=== PATIENT | female | born 1995 | race Hispanic/Latino ===

== ENCOUNTER 2018-10-02 22:31 | Emergency (ER) | payer BC ==
[2018-10-02 22:50] VITALS: TEMP 98
[2018-10-03 00:54] LABS: BASO # 0.01 K/mm3 (0.0-2.0); BASO % 0.1 % (0.0-3.0); EOS # 0.1 (0.0-0.7); EOS % 0.4 % (1.5-5.0); HEMOGLOBIN 11.7 g/dL (12.0-16.0); LYMPH # 2.3 (1.2-3.4); MEAN CELL VOLUME 72.6 fl (80.0-105.0); MEAN CORPUSCULAR HEMOGLOBIN 22.1 pg (25.0-35.0); MEAN CORPUSCULAR HGB CONC 30.5 g/dl (31.0-37.0); MEAN PLATELET VOLUME 10.3 fl (7.0-11.0); MONO # 0.8 (0.1-0.6); RBC 5.29 10^6/uL (3.5-6.1); RED CELL DISTRIBUTION WIDTH 14.9 % (11.5-14.5); WHITE BLOOD COUNT 12.1 10^3/uL (4.5-11.0)
[2018-10-03 01:12] LABS: ALB/GLOB RATIO 1.3 (1.1-1.8); ALBUMIN 4.7 g/dL (3.0-4.8); ALT/SGPT 19 U/L (7-56); AST/SGOT 28 U/L (14-36); BLOOD UREA NITROGEN 12 mg/dL (7-21); CALCIUM 9.8 mg/dL (8.4-10.5); GFR NON-AFRICAN AMERICAN > 60
[2018-10-03] MEDS ORDERED: TDAP Vaccine 0.5 mL Syr IM ONE (01:13)
--- NOTE | 2018-10-03 01:13 | ED PDOC ---
Arrival/HPI <Mo Perez - Last Filed: 10/03/18 02:08> - General Historian: Patient - History of Present Illness Narrative History of Present Illness (Text): 10/03/18 01:13 23-year-old F with past medical history of hypertension, reports sustaining head trauma with a laceration in between her eyebrows after she was sitting on the toilet attempting to have a bowel movement, she then felt lightheaded and then had a syncopal episode and hit her face. Patient reports that she was smoking marijuana earlier. Otherwise: (-) loss of consciousness, (-) nausea, (- ) vomiting, (-) severe headache, (-) other injury, (-) neck pain, (-) subjective neurologic deficit, (-) anticoagulants. PMD Kathryn <Radha Cho PA-C - Last Filed: 10/03/18 02:17> - General Chief Complaint: Trauma Time Seen by Provider: 10/02/18 22:40 Past Medical History - Infectious Disease Hx of Infectious Diseases: None - Reproductive Currently : No - Cardiac Hx Cardiac Disorders: Yes Hx Hypertension: Yes - Pulmonary Hx Respiratory Disorders: No - Neurological Hx Neurological Disorder: No - HEENT Hx HEENT Disorder: No - Renal Hx Renal Disorder: No - Endocrine/Metabolic Hx Endocrine Disorders: No - Hematological/Oncological Hx Blood Disorders: No - Integumentary Hx Dermatological Disorder: No - Musculoskeletal/Rheumatological Hx Musculoskeletal Disorders: No - Gastrointestinal Hx Gastrointestinal Disorders: Yes Hx Gastroesophageal Reflux: Yes - Genitourinary/Gynecological Hx Genitourinary Disorders: No - Psychiatric Hx Psychophysiologic Disorder: Yes Hx Depression: Yes Hx Substance Use: Yes <Radha Cho PA-C - Last Filed: 10/03/18 02:17> Family/Social History Family/Social History: Hypertension Smoking Status: Current Some Days Smoker Hx Alcohol Use: No Hx Substance Use: Yes Substance used: marijuana <Radha Cho PA-C - Last Filed: 10/03/18 02:17> Allergies/Home Meds <Mo Perez - Last Filed: 10/03/18 02:08> <Radha Cho PA-C - Last Filed: 10/03/18 02:17> Allergies/Adverse Reactions: Allergies adhesive Allergy (Verified 10/02/18 22:48) RASH Home Medications: Home Meds Medication Instructions Recorded Confirmed FLUoxetine [Prozac] 10/02/18 10/02/18 Losartan [Cozaar] 10/02/18 Pantoprazole [Protonix EC Tab] 10/02/18 Review of Systems - Review of Systems Constitutional: absent: Fatigue, Fevers Respiratory: absent: SOB, Cough Cardiovascular: absent: Chest Pain, Palpitations Gastrointestinal: absent: Abdominal Pain, Nausea, Vomiting Genitourinary Female: absent: Dysuria, Frequency Musculoskeletal: absent: Arthralgias, Back Pain Skin: Laceration. absent: Rash, Pruritis Neurological: Dizziness. absent: Headache <Radha Cho PA-C - Last Filed: 10/03/18 02:17> Physical Exam Vital Signs Temp Pulse Resp BP Pulse Ox 10/02/18 22:49 98.0 F 94 H 20 147/94 H 100 <Mo Perez - Last Filed: 10/03/18 02:08> Vital Signs Temp Pulse Resp BP Pulse Ox 10/02/18 22:49 98.0 F 94 H 20 147/94 H 100 Temperature: Afebrile Blood Pressure: Hypertensive Pulse: Regular Respiratory Rate: Normal Appearance: Positive for: Well-Appearing, Non-Toxic, Comfortable Pain Distress: None Mental Status: Positive for: Alert and Oriented X 3 - Systems Exam Head: Present: Laceration (+superficial 3 cm vertical laceration in between the eyebrows) Pupils: Present: PERRL Extroacular Muscles: Present: EOMI Conjunctiva: Present: Normal Mouth: Present: Moist Mucous Membranes Neck: Present: Normal Range of Motion. No: MIDLINE TENDERNESS Respiratory/Chest: Present: Clear to Auscultation, Good Air Exchange. No: Respiratory Distress, Accessory Muscle Use Cardiovascular: Present: Regular Rate and Rhythm, Normal S1, S2. No: Murmurs Abdomen: No: Tenderness, Distention, Peritoneal Signs Back: Present: Normal Inspection Upper Extremity: Present: Normal Inspection. No: Cyanosis, Edema Lower Extremity: Present: Normal Inspection. No: Edema Neurological: Present: GCS=15, CN II-XII Intact, Speech Normal, Motor Func Grossly Intact, Normal Sensory Function Skin: Present: Warm, Dry, Normal Color. No: Rashes Psychiatric: Present: Alert, Oriented x 3, Normal Insight, Normal Concentration <Radha Cho PA-C - Last Filed: 10/03/18 02:17> Medical Decision Making - Lab Interpretations Lab Results: Total Bilirubin 0.4 mg/dL (0.2-1.3) 10/03/18 00:43 AST 28 U/L (14-36) 10/03/18 00:43 ALT 19 U/L (7-56) 10/03/18 00:43 Alkaline Phosphatase 70 U/L (38-126) 10/03/18 00:43 Total Protein 8.3 g/dL (5.8-8.3) 10/03/18 00:43 Albumin 4.7 g/dL (3.0-4.8) 10/03/18 00:43 Globulin 3.6 gm/dL 10/03/18 00:43 Albumin/Globulin Ratio 1.3 (1.1-1.8) 10/03/18 00:43 - RAD Interpretation Radiology Orders: 10/02/18 23:43 HEAD W/O CONTRAST [CT] Stat - Medication Orders Current Medication Orders: Discontinued Medications Tetanus/Reduced Diphtheria/Acell Pertussis (Boostrix Vaccine Inj) 0.5 ml IM .ONCE ONE Stop: 10/03/18 01:14 Last Admin: 10/03/18 01:34 Dose: 0.5 ml Immunization Registry Document 10/03/18 01:34 DM (Rec: 10/03/18 01:34 DM [id number]) [facility]-Date provided 10/02/18 MAR Immunization Data Document 10/03/18 01:34 DM (Rec: 10/03/18 01:34 [id number]) Immunization Data Vaccine Information Sheet Given Yes Vaccine Information Sheet Given Date 10/03/18 <Mo Perez - Last Filed: 10/03/18 02:08> ED Course and Treatment: 10/03/18 01:17 Plan : - CT head - Labs - EKG Uhcg : (-) EKG : ST at 105 bpm, no acute ST changes. CT head : no acute intracranial abnormality. Oziel Mullins MD 10/03/18 01:27. Labs reviewed and wnl. The wound is forehead between the eyebrows ~3 cm. The wound was copiously irrigated with normal saline. The wound was prepped and draped in the normal sterile fashion. The wound was explored for foreign bodies and none were found. The edges were reapproximated using dermabond by STERLING. Bleeding was well controlled and the patient tolerated the procedure well. On reevaluation, patient reports improvement of symptoms, denies any headache, dizziness or CP. On exam, patient remains awake alert and oriented 3 in no acute distress. Rrepeat neuro exam shows no focal findings. Diagnostic results d/w the patient. Dx of vasovagal syncope d/w the patient. Advised to follow up with primary care physician in 1-2 days without fail. Return to the emergency room at any time for any new or worsening symptoms. Patient states she fully agrees with and understands discharge instructions. States that she agrees with the plan and disposition. Verbalized and repeated discharge instructions and plan. I have given the patient opportunity to ask any additional questions. - RAD Interpretation Radiology Orders: 10/02/18 23:43 HEAD W/O CONTRAST [CT] Stat <Radha Cho PA-C - Last Filed: 10/03/18 02:17> - PA / EMERGENCY GENERATOR MECHANIC / Resident Statement JERE has reviewed & agrees with the documentation as recorded. <Mo Perez - Last Filed: 10/03/18 02:08> - PA / EMERGENCY GENERATOR MECHANIC / Resident Statement JERE has reviewed & agrees with the documentation as recorded. <Radha Cho PA-C - Last Filed: 10/03/18 02:17> Disposition/Present on Arrival <Mo Perez - Last Filed: 10/03/18 02:08> - Present on Arrival Any Indicators Present on Arrival: No History of DVT/PE: No History of Uncontrolled Diabetes: No Urinary Catheter: No History of Decub. Ulcer: No History Surgical Site Infection Following: None - Disposition Have Diagnosis and Disposition been Completed?: Yes Disposition Time: 01:45 Patient Plan: Discharge <Radha Cho PA-C - Last Filed: 10/03/18 02:17> - Disposition Diagnosis: Head injury, Facial laceration, Vasovagal syncope Disposition: HOME/ ROUTINE Patient Problems: Current Active Problems Problem Status Onset Head injury Acute Facial laceration Acute Vasovagal syncope Acute Condition: STABLE Discharge Instructions (ExitCare): Syncope (Fainting), Laceration Repair, Closed Head Injury, Syncope (ED) Additional Instructions: Thank you for letting us take care of you today. You were treated for head injury, facial laceration, vasovagal syncope. The emergency medical care you received today was directed at your acute symptoms. It may take several days for your symptoms to resolve. Return to the Emergency Department if your symptoms worsen, do not improve, or if you have any other problems. Please contact your doctor in 2 days for re-evaluation and follow up. Bring any paperwork you were given at discharge with you along with any medications you are taking to your follow up visit. Our treatment cannot replace ongoing medical care by a primary care provider (PCP) outside of the emergency department. Thank you for allowing the [facility] team to be part of your care today. If you had a CT scan: A Radiologist will review the ED reading if any change in treatment is needed we will contact you. Referrals: Kathryn VAZQUEZ,Bubba Triana MD [Primary Care Provider] - Follow up with primary Forms: [employer] (Turkish), WORK NOTE, SCHOOL NOTE
[2018-10-03 02:25] VITALS: BP 135/78; PULSE 84; RESP 18; O2SAT 99
--- NOTE | 2018-10-03 09:27 | CT ---
Date of service: 10/03/2018 PROCEDURE: CT HEAD WITHOUT CONTRAST. HISTORY: syncope COMPARISON: None available. TECHNIQUE: Axial computed tomography images were obtained through the head/brain without intravenous contrast. Radiation dose: Total exam DLP = 888.4 mGy-cm. This CT exam was performed using one or more of the following dose reduction techniques: Automated exposure control, adjustment of the mA and/or kV according to patient size, and/or use of iterative reconstruction technique. FINDINGS: HEMORRHAGE: No intracranial hemorrhage. BRAIN: No mass effect or edema. No atrophy or chronic microvascular ischemic changes. VENTRICLES: Unremarkable. No hydrocephalus. CALVARIUM: Unremarkable. PARANASAL SINUSES: Unremarkable as visualized. No significant inflammatory changes. MASTOID AIR CELLS: Unremarkable as visualized. No inflammatory changes. OTHER FINDINGS: None. IMPRESSION: No acute intracranial findings
--- NOTE | 2018-10-03 16:45 | CARD ---
APPROVED REPORT Date of service: 10/02/2018 EKG Measurement Heart [id number] <Conclusion> Sinus tachycardia Otherwise normal ECG
== END 2018-10-03 02:20 | disposition home or self-care (01) ==
LOC: ED 22:31
DX: S01.111A Laceration without foreign body of right eyelid and periocular area, initial encounter (principal); W22.8XXA Striking against or struck by other objects, initial encounter; I10 Essential (primary) hypertension; Z23 Encounter for immunization

== ENCOUNTER 2018-12-09 10:34 | Observation (INO) | payer BC ==
[2018-12-09 10:49] VITALS: BMI 58.6
[2018-12-09] MEDS ORDERED: Sodium Chloride 0.9% 500 ML IV STA (11:24)
--- NOTE | 2018-12-09 11:24 | ED PDOC ---
Arrival/HPI - General Chief Complaint: GI Problem Historian: Patient - History of Present Illness Narrative History of Present Illness (Text): 12/09/18 11:24 23 year old female, whose past medical history includes hypertension and ulcers, who presents to the emergency department complaining of sharp upper abdominal pain x 2 weeks. Patient reports she has always had "stomach problems", but it is now exacerbated. Patient reports pain is worsened with intake of food and states she has not been eating well. Patient reports pain has radiated to her back for the past 2 days. Patient also reports she was sent to [facility] yesterday for H. pylori and was discharged. She endorses having an endoscopy done by Dr. Mora, and states 9 ulcers were found. She also endorses having an ultrasound done at an outside facility which showed a fatty liver, but no gallstones. She also endorses she was put on medication for her blood pressure 1 1/2 year ago. Patient reports intermittent episodes where she "feels like she is having a heart attack". Patient also endorses dizziness for the past couple of weeks, and states she "feels like she is going to pass out". She reports a syncopal episode 1 month ago and states she was seen here and was discharged. Patient reports vomiting earlier today, "watery" diarrhea for the past 2 weeks, and chills. Patient denies any fever, dark or bloody stool, antibiotic usage, recent travel, or any other complaints. PMD: Dr. Peralta Time/Duration: > week Symptom Onset: Gradual Symptom Course: Unchanged Activities at Onset: Light Context: Home Past Medical History - Provider Review Nursing Documentation Reviewed: Yes - Infectious Disease Hx of Infectious Diseases: None - Cardiac Hx Cardiac Disorders: Yes Hx Hypertension: Yes - Pulmonary Hx Respiratory Disorders: No - Neurological Hx Neurological Disorder: No - HEENT Hx HEENT Disorder: No - Renal Hx Renal Disorder: No - Endocrine/Metabolic Hx Endocrine Disorders: No - Hematological/Oncological Hx Blood Disorders: No - Integumentary Hx Dermatological Disorder: No - Musculoskeletal/Rheumatological Hx Musculoskeletal Disorders: No - Gastrointestinal Hx Gastrointestinal Disorders: Yes Hx Gastroesophageal Reflux: Yes Hx Gastrointestinal Ulcer: Yes - Genitourinary/Gynecological Hx Genitourinary Disorders: No - Psychiatric Hx Psychophysiologic Disorder: Yes Hx Depression: Yes Hx Substance Use: Yes Family/Social History - Physician Review Nursing Documentation Reviewed: Yes Family/Social History: Unknown Family HX Smoking Status: Current Some Days Smoker Hx Alcohol Use: No Hx Substance Use: Yes Substance used: marijuana Allergies/Home Meds Allergies/Adverse Reactions: Allergies adhesive Allergy (Verified 12/09/18 10:49) RASH Home Medications: Home Meds Medication Instructions Recorded Confirmed FLUoxetine [Prozac] 10/02/18 10/02/18 Losartan [Cozaar] 10/02/18 Pantoprazole [Protonix EC Tab] 10/02/18 Physical Exam - Physical Exam Narrative Physical Exam (Text): 12/09/18 11:21 Head: Atraumatic. Normocephalic. Eyes: PERRL. EOMI. Conjunctivae are not pale. ENT: Mucous membranes are moist and intact. Oropharynx is clear and symmetric. Neck: Supple. Full ROM. No JVD. No lymphadenopathy. Cardiovascular: Regular rate. Regular rhythm. No murmurs, rubs, or gallops. Distal pulses are 2+ and symmetric. Pulmonary/Chest: No evidence of respiratory distress. Clear to auscultation bilaterally. No wheezing, rales or rhonchi. Abdominal: Soft and non-distended. There is no tenderness. No rebound, guarding, or rigidity. No organomegaly. Good bowel sounds. Back: No CVA tenderness. Extremities: No edema. No cyanosis. No clubbing. Full range of motion in all extremities. No calf tenderness. Skin: Skin is warm and dry. No petechiae. No purpura. Neurological: Alert, awake, and oriented to person, place, time, and situation. Normal speech. Psychiatric: Good eye contact. Normal interaction, affect, and behavior. Vital Signs Temp Pulse Resp BP Pulse Ox 12/09/18 10:35 98.1 F 75 18 114/52 L 100 Medical Decision Making ED Course and Treatment: 12/09/18 11:21 Impression: 23 year old female presents to the emergency department complaining of upper abdominal pain x 2 weeks. Differential Diagnosis included but are not limited to: gastritis v colitis v dehydration v inflammatory bowel disease. Plan: -- CT A&P -- Labs -- EKG -- Urinalysis -- IV Fluids -- Protonix -- Cozaar -- Maalox -- Reassess and disposition Prior Visits: Notes and results from previous visits were reviewed. Progress Notes: 12/09/18 16:19 Patient at this time has unremarkable CT of the abdomen, she complains of intermittent chest discomfort, states it is relieved with protonix, denies pain with deep breaths, no hypoxia or tachycardia, no calf pain, does not take oral contraceptives, no history of prolonged travel. She had an episode of becoming dizzy and hypotensive when laying down in the ER, resolved after a few minutes and was able to sit up. EKG is unremarkable, discussed case with PMD, will admit to telemetry bed for episode associated with presyncope, discussed case with Dr. Waldron by family request, who is aware of history and consultation. 12/09/18 18:21 Re-evaluation. Abdomen soft and nontender. Ddimer unremarkable - RAD Interpretation Narrative RAD Interpretations (Text): 12/09/18 13:26 CT Abdomen and pelvis reviewed by Gopi Zimmerman MD, shows: No acute intra- abdominal findings. Geoscience Technician: Radiologist - Scribe Statement The provider has reviewed the documentation as recorded [facility] the [facility] Sc[facility] Attestation: All medical record entries made by the Scribe were at my direction and personally dictated by me. I have reviewed the chart and agree that the record accurately reflects my personal performance of the history, physical exam, medical decision making, and the department course for this patient. I have also personally directed, reviewed, and agree with the discharge instructions and disposition. Disposition/Present on Arrival - Present on Arrival Any Indicators Present on Arrival: No History of DVT/PE: No History of Uncontrolled Diabetes: No Urinary Catheter: No History of Decub. Ulcer: No History Surgical Site Infection Following: None - Disposition Have Diagnosis and Disposition been Completed?: Yes Diagnosis: Abdominal pain, Chest pain Disposition: HOSPITALIZED Disposition Time: 14:00 Patient Plan: Admission, Telemetry Patient Problems: Current Active Problems Problem Status Onset Abdominal pain Acute Chest pain Acute Condition: FAIR
[2018-12-09 12:16] LABS: URINE BILIRUBIN NEGATIVE (NEGATIVE); URINE BLOOD NEGATIVE (NEGATIVE); URINE GLUCOSE (UA) NEGATIVE (NEGATIVE); URINE LEUKOCYTE ESTERASE NEGATIVE Leu/uL (NEGATIVE); URINE PROTEIN NEGATIVE mg/dL (<30 mg/dL)
[2018-12-09 12:16] LABS: BASO # 0.01 K/mm3 (0.0-2.0); BASO % 0.1 % (0.0-3.0); EOS # 0.1 (0.0-0.7); EOS % 0.6 % (1.5-5.0); LYMPH # 2.4 (1.2-3.4); LYMPH % 27.2 % (22.0-35.0); MEAN CORPUSCULAR HEMOGLOBIN 21.9 pg (25.0-35.0); MEAN CORPUSCULAR HGB CONC 30.8 g/dl (31.0-37.0); MEAN PLATELET VOLUME 10.6 fl (7.0-11.0); MONO # 0.5 (0.1-0.6); MONO % 5.7 % (1.0-6.0); RBC 5.49 10^6/uL (3.5-6.1); RED CELL DISTRIBUTION WIDTH 15.1 % (11.5-14.5)
[2018-12-09 12:17] LABS: WHITE BLOOD COUNT 8.8 10^3/uL (4.5-11.0)
[2018-12-09 12:17] LABS: URINE APPEARANCE CLEAR (CLEAR); URINE COLOR YELLOW (YELLOW)
[2018-12-09 12:24] LABS: ALB/GLOB RATIO 1.3 (1.1-1.8); ALBUMIN 4.6 g/dL (3.0-4.8); ALT/SGPT 25 U/L (7-56); AMYLASE 45 U/L (35-125); AST/SGOT 28 U/L (14-36); BLOOD UREA NITROGEN 8 mg/dL (7-21); CALCIUM 9.4 mg/dL (8.4-10.5); GFR NON-AFRICAN AMERICAN > 60; LIPASE 64 U/L (23-300)
[2018-12-09 12:25] LABS: INR 1.27; PARTIAL THROMBOPLASTIN TIME 41.2 Seconds (26.9-38.3); PROTHROMBIN TIME 14.4 SECONDS (9.4-12.5)
[2018-12-09 12:35] LABS: TROPONIN I < 0.01 ng/mL
--- NOTE | 2018-12-09 13:30 | CT ---
Date of service: 12/09/2018 PROCEDURE: CT Abdomen and Pelvis with contrast HISTORY: diffuse abdominal pain 2 weeks, ? colitis COMPARISON: None. TECHNIQUE: Contrast dose: 150 cc of Omni 350 Radiation dose: Total exam DLP = 1664.01 mGy-cm. This CT exam was performed using one or more of the following dose reduction techniques: Automated exposure control, adjustment of the mA and/or kV according to patient size, and/or use of iterative reconstruction technique. FINDINGS: LOWER THORAX: Unremarkable. LIVER: Unremarkable. No gross lesion or ductal dilatation. GALLBLADDER AND BILE DUCTS: Unremarkable. PANCREAS: Unremarkable. No gross lesion or ductal dilatation. SPLEEN: Unremarkable. ADRENALS: Unremarkable. No mass. KIDNEYS AND URETERS: Unremarkable. No hydronephrosis. No solid mass. VASCULATURE: Unremarkable. No aortic aneurysm. No aortic atherosclerotic calcification or mural plaque present. BOWEL: Unremarkable. No obstruction. No gross mural thickening. APPENDIX: Normal appendix. PERITONEUM: Unremarkable. No free fluid. No free air. LYMPH NODES: Unremarkable. No enlarged lymph nodes. BLADDER: Unremarkable. REPRODUCTIVE: Unremarkable. BONES: No acute fracture. OTHER FINDINGS: None. IMPRESSION: No acute intra-abdominal findings
[2018-12-09] MEDS ORDERED: Alum-Mag Hydrox-Simethicone Susp (30 mL) PO PRN (14:40)
--- NOTE | 2018-12-09 19:08 | CARD ---
APPROVED REPORT Date of service: 12/09/2018 EKG Measurement Heart [id number] <Conclusion> Normal sinus rhythm Normal ECG
--- NOTE | 2018-12-09 20:00 | HP ---
HISTORY OF PRESENT ILLNESS: The patient is a 23-year-old woman with a past medical history of peptic ulcer disease who presented for evaluation of a 2 week history of sharp epigastric abdominal pain. The patient is followed by Dr. Mora of Gastroenterology and has a history of peptic ulcer disease, gastritis and esophagitis. She is taking Protonix 40 mg p.o. daily but states that over the course of the preceding 2 weeks she has been experiencing increasing epigastric abdominal discomfort associated with intermittent dysphagia and dyspepsia. She also reports 3 episodes of near syncope associated with her abdominal pain, which is what prompted her visit to the ED. Of note, she has also seen a palliative medicine physician for evaluation of her near syncope and is actively wearing a Holter monitor as part of her ongoing workup. Also of note, she had a CT of the head performed in 09/2018 which was negative for acute pathology. She denies chest pain, orthopnea, pedal edema, headache, aura or syncope associated with her symptoms. In the ED she was afebrile and hemodynamically stable, albeit in moderate distress secondary to epigastric abdominal pain. She also had a witnessed episode of near syncope and as such was admitted for continued observation. PAST MEDICAL HISTORY: As per HPI, also hypertension and morbid obesity. PAST SURGICAL HISTORY: Tonsillectomy. ALLERGIES: NKDA. MEDICATIONS: Losartan 100 mg p.o. daily and Protonix 40 mg p.o. daily. FAMILY HISTORY: Noncontributory. SOCIAL HISTORY: She reports social alcohol use and occasional marijuana use. She denies tobacco use or IV drug abuse. REVIEW OF SYSTEMS: A 12-point review of systems is negative except as per HPI. PHYSICAL EXAMINATION: VITAL SIGNS: Temperature 98.1, pulse 75, blood pressure 114/52, respiratory rate 18, and oxygen saturation 100% on room air. GENERAL: Morbidly obese woman lying in bed in no apparent distress. HEENT: PERRL, EOMI. No scleral icterus. No conjunctival pallor. NECK: No JVD. No bruits. LUNGS: Clear to auscultation. CARDIOVASCULAR: Regular rate and rhythm. Normal S1 and S2. No murmurs. ABDOMEN: Normoactive bowel sounds, soft, tender to palpation to epigastrium with voluntary guarding and nondistended. EXTREMITIES: No edema. NEUROLOGIC: Awake, alert, and oriented x 3. No focal motor deficits. LABORATORY DATA: WBC 8.8 with 66% neutrophils, hemoglobin 12, hematocrit 39, and platelets 300. Sodium 137, potassium 4, chloride 101, bicarb 25, BUN 8, creatinine 0.5, and glucose 86. IMAGING STUDIES: 1. CT of the abdomen and pelvis with IV contrast demonstrated no acute pathology. ASSESSMENT: The patient is a 23-year-old woman with a past medical history of peptic ulcer disease, hypertension and morbid obesity who presented for evaluation of a 2 week history of worsening epigastric abdominal discomfort and near syncope. PLAN: 1. Peptic ulcer disease. CT imaging reviewed. GI evaluation with Dr. Mora is pending. Continue Protonix 40 mg p.o. daily and Maalox p.r.n. dyspepsia. 2. Near syncope. Workup is ongoing with Holter monitoring. At the family's request, we will consult Dr. Waldron for further evaluation. 3. Hypertension. We will lower Losartan to 50 mg p.o. daily. 4. Morbid obesity. The patient has been counseled on lifestyle modifications. 5. Prophylaxis. GI prophylaxis not indicated as the patient remains on Protonix. DVT prophylaxis not indicated as the patient remains ambulatory. CODE STATUS: Full code. Bubba Peralta MD MTDD
[2018-12-09 22:36] VITALS: RESP 20
[2018-12-09] MEDS ORDERED: Pneumococcal 23-Valent Vaccine IM ONE (22:36)
[2018-12-10 06:21] VITALS: TEMP 97.5; O2SAT 98
[2018-12-10 06:54] LABS: BASO # 0.01 K/mm3 (0.0-2.0); BASO % 0.1 % (0.0-3.0); EOS # 0.1 (0.0-0.7); EOS % 0.8 % (1.5-5.0); HEMOGLOBIN 11.8 g/dL (12.0-16.0); LYMPH # 1.8 (1.2-3.4); LYMPH % 24.3 % (22.0-35.0); MEAN CELL VOLUME 70.8 fl (80.0-105.0); MEAN CORPUSCULAR HEMOGLOBIN 21.7 pg (25.0-35.0); MEAN CORPUSCULAR HGB CONC 30.6 g/dl (31.0-37.0); MEAN PLATELET VOLUME 10.8 fl (7.0-11.0); MONO # 0.6 (0.1-0.6); MONO % 7.5 % (1.0-6.0); RBC 5.45 10^6/uL (3.5-6.1); RED CELL DISTRIBUTION WIDTH 15.3 % (11.5-14.5); WHITE BLOOD COUNT 7.5 10^3/uL (4.5-11.0)
[2018-12-10 07:08] LABS: ALB/GLOB RATIO 1.3 (1.1-1.8); ALBUMIN 4.5 g/dL (3.0-4.8); ALT/SGPT 18 U/L (7-56); AST/SGOT 27 U/L (14-36); BLOOD UREA NITROGEN 9 mg/dL (7-21); CALCIUM 9.2 mg/dL (8.4-10.5); GFR NON-AFRICAN AMERICAN > 60
[2018-12-10 09:55] VITALS: BP 140/80; PULSE 80
[2018-12-10] MEDS ORDERED: Pantoprazole 40 mg EC Tab PO SCH (10:00)
--- NOTE | 2018-12-10 15:28 | CON ---
DATE OF CONSULTATION: 12/10/2018 REQUESTING PHYSICIAN: Dr. Peralta. REASON FOR CONSULTATION: Near syncope. HISTORY: This is a 23-year-old woman with apparent history of hypertension and peptic ulcer disease, who has had several episodes of lightheadedness. She had did have a syncopal event in the recent past. She was recently referred for cardiac evaluation and was advised a 30-day event monitor, which is in place. She has not been notified of any significant abnormalities. She states that her ulcer disease has been more active lately. She has had some epigastric as well as retrosternal chest discomfort recently. With retrosternal chest pain she has felt weak and lightheaded. She did feel as though she was going to lose consciousness on several occasions. Several months ago she did have a syncopal event in the bathroom. She states that she had not had very much to eat or drink throughout the course of that day and had been very active. She had been started on control medication in the recent past; however, has now developed hypertension and was placed on losartan, and her oral contraceptive therapy was discontinued. She does have a history of morbid obesity as well. There is no family history of premature heart disease or sudden . Of note, in the emergency room she apparently had a drop in blood pressure when lying supine during an orthostatic blood pressure check. PAST MEDICAL HISTORY: Her past history is notable for the problems mentioned above. She has undergone a prior tonsillectomy. MEDICATIONS: Her medications at home included losartan 100 mg daily, Protonix 40 mg daily. ALLERGIES: SHE HAS NO REPORTED ALLERGIES. SOCIAL HISTORY: She smoked a few cigarettes as a teenager and uses marijuana occasionally. She drinks alcohol rarely. She has no other illicit habits. 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 She does not exercise regularly. FAMILY HISTORY: Both parents are alive and in good health. There is no family history of premature heart disease. REVIEW OF SYSTEMS: Notable for occasional dyspnea and joint pain. A 12-point review of systems was otherwise unremarkable. PHYSICAL EXAMINATION: GENERAL: She is a morbidly obese, young woman. VITAL SIGNS: Her blood pressure is 130/84 with a pulse of 80 and sinus, respirations are 14. She is afebrile. HEENT: Normocephalic, atraumatic. NECK: Thick. No JVD noted. CHEST: Clear to auscultation and percussion. HEART: Heart tones sound distant. PMI not palpable. No pathologic murmurs or gallops heard. ABDOMEN: Soft, obese, nontender with normoactive bowel sounds. EXTREMITIES: No clubbing, cyanosis or edema. SKIN: Warm and dry. PSYCHIATRIC: Normal mood and affect. NEUROLOGIC: Alert and oriented x3. No gross motor or sensory deficits notable. DIAGNOSTIC DATA: White count 7.5, hemoglobin and hematocrit are 11.8 and 38.6 with an MCV of 70.8, platelet count 274,000. PT/PTT of 14.4 and 41.2. Potassium 4.2. BUN and creatinine are 9 and 0.6. Troponin is negative. Amylase and lipase are normal. CT of the abdomen and pelvis was unremarkable. Electrocardiogram reveals sinus rhythm with no significant abnormalities. IMPRESSION: 1. Near syncope, symptoms are most consistent with vasovagal events, as they are usually related to abdominal and chest discomfort. 2. Chest pain, likely related to previously documented esophageal ulcer, doubt cardiac cause. 3. Morbid obesity, clearly problematic. 4. Hypertension, likely related to excess weight. RECOMMENDATIONS: Telemetry monitoring can be discontinued at this time. A routine echocardiogram will be obtained. She does have a 30-day event monitor in place, and this can be continued to completion and report will be checked. The need for aggressive weight loss measures were discussed with her. She was cautioned, however, about prolonged fasting or volume depletion, which may exacerbate any tendency towards orthostasis and syncope in the setting of the vasovagal events. She is scheduled for a followup endoscopy next week, and it should proceed as planned. Thank you for this consultation. We will be happy to arrange for outpatient followup as needed. Shiraz Waldron MD MTDD
--- NOTE | 2018-12-10 15:53 | CON ---
DATE: 12/10/2018 HISTORY OF PRESENT ILLNESS: I examined Ms. Callahan this morning. She is a 23-year-old Bengali female with a past medical history of severe esophagitis, esophageal ulcer as well as multiple gastric ulcers and duodenal erosions. The patient has been complaining over the past several weeks of increasing epigastric pain as well as right upper quadrant discomfort. The findings for her include near syncope which varies with position, also dizziness, which has been going on over the past week and half to two weeks. The patient called me indicating increasing degree of epigastric and chest pain all over the previous 24 to 36 hours prior to admission. She initially went to [facility] for evaluation with noncontributory results. I spoke to the patient yesterday and advised her to come to [facility], where this case was reviewed with Dr. Castro, the ER physician. Abdominal CT was performed, which was negative for hepatobiliary issues. Gallbladder and bile ducts were normal, liver noncontributory. "There apparently are no acute intra-abdominal findings." The patient's electrocardiogram include normal sinus rhythm. At bedside this morning, the patient feels somewhat better. After intravenous pantoprazole, the epigastric and chest pain has decreased somewhat. She has no complaints of hematemesis or rectal bleeding. She still experiences positional dizziness. PHYSICAL EXAMINATION VITAL SIGNS: I reviewed this patient's vital signs. HEENT: Noncontributory. LUNGS: Clear to auscultation. HEART: Regular rhythm. ABDOMEN: Protuberant, soft, tender in the epigastric area in the left upper quadrant. LABORATORY DATA: Laboratories indicate the H and H 12 and 39, white count 8, unchanged. Chemistry noncontributory. Hepatobiliary labs were within normal limits. ASSESSMENT: This is a 23-year-old weight-challenged Bengali female with complaints of persistent chest pain, severe abdominal pain with some positional dizziness and near syncope. The patient is currently on a telemetry unit, will be evaluated by Cardiology later on this morning for the latter complaint of near syncope and positional dizziness. Could be that her pressure medication needs to be adjusted. Although, this patient has had a history of multiple ulcerations involving the esophagus, stomach and small bowel. She was recently found to be serology positive for H. pylori. The patient at this time will be scheduled for an endoscopy this coming Thursday whether as an inpatient or as an outpatient. The patient is currently on pantoprazole and is somewhat better than prior to admission. Mack Mora DO, PhD KATHRIN
--- NOTE | 2018-12-11 00:03 | CARD ---
APPROVED REPORT Date of service: 12/09/2018 EKG Measurement Heart [id number] <Conclusion> Normal sinus rhythm Normal ECG
--- NOTE | 2018-12-14 01:41 | DS ---
ADMISSION DIAGNOSES: Near syncope and peptic ulcer disease. DISCHARGE DIAGNOSES: Near syncope and peptic ulcer disease. SECONDARY DIAGNOSES: Hypertension and morbid obesity. CONSULTATIONS: Dr. Waldron (Cardiology) and Dr. Mora (Gastroenterology). IMAGING STUDIES: 1. CT of the abdomen and pelvis with IV contrast demonstrated no acute pathology. DIAGNOSTIC STUDIES: None. PROCEDURES: None. HISTORY OF PRESENT ILLNESS: The patient is a 23-year-old woman with a past medical history of peptic ulcer disease who presented for evaluation of a 2 week history of sharp epigastric abdominal pain associated with episodes of lightheadedness and near syncope. She is followed by Dr. Mora and is being treated with Protonix 40 mg p.o. daily for peptic ulcer disease, gastritis and esophagitis. Over the past 2 weeks she has been experiencing worsening epigastric abdominal discomfort associated with intermittent dysphagia and dyspepsia. She also reports 3 episodes of near syncope associated with her abdominal pain. She admits to not being adherent to the diet as recommended by Dr. Sawyer but states that she does take her medications as directed. Of note, she is seeing a hardening machine operator helper for evaluation of her near syncope and is actively wearing a Holter monitor as part of her ongoing workup. Also of note, she had a CT of the head performed in 09/2018 which was negative for acute pathology. She denies chest pain, orthopnea, pedal edema, headache, aura or syncope associated with her symptoms. In the ED she was afebrile and hemodynamically stable, albeit in moderate distress secondary to epigastric abdominal pain. She also had a witnessed episode of near syncope and as such was admitted for continued observation. HOSPITAL COURSE: Upon admission to the telemetry stahl the patient was evaluated by Dr. Mora and Dr. Waldron. She was advised that the etiology of her near syncope is likely secondary to vasovagal phenomenon and was encouraged to follow up with her hardening machine operator helper given her ongoing Holter monitoring. She was again counseled on the need to adhere to dietary restrictions as advised by Dr. Mora and was scheduled for a repeat EGD on an outpatient basis. Given her hemodynamic stability, lack of events on telemetry monitoring and the fact that she had no recurrence of her presenting symptoms, she was cleared for discharge home on hospital day #2. CONDITION: Good, improved. DISPOSITION: Home. DISCHARGE MEDICATIONS: Losartan 100 mg p.o. daily and Protonix 40 mg p.o. daily. DISCHARGE INSTRUCTIONS: The patient was advised to return to her PMD or to the nearest ED immediately should her symptoms recur. FOLLOWUP: The patient to follow up with her PMD within 1 week of discharge. The patient to follow up with Dr. Mora and her hardening machine operator helper as scheduled. Bubba Peralta MD MTDJacque
== END 2018-12-10 10:48 | disposition home or self-care (01) ==
LOC: ED 10:34 → ERH 14:29 → 2RNO 21:50
PROVIDERS: ADMIT Student in an Organized Health Care Education/Training Program; ATTEND Student in an Organized Health Care Education/Training Program
DX: R55 Syncope and collapse (principal); K27.9 Peptic ulcer, site unspecified, unspecified as acute or chronic, without hemorrhage or perforation; I10 Essential (primary) hypertension; E66.01 Morbid (severe) obesity due to excess calories; Z68.43 Body mass index [BMI] 50.0-59.9, adult; K22.10 Ulcer of esophagus without bleeding; K20.9 Esophagitis, unspecified; K29.70 Gastritis, unspecified, without bleeding; B96.81 Helicobacter pylori [H. pylori] as the cause of diseases classified elsewhere; F12.90 Cannabis use, unspecified, uncomplicated; K21.9 Gastro-esophageal reflux disease without esophagitis; K76.0 Fatty (change of) liver, not elsewhere classified; Z87.891 Personal history of nicotine dependence
CPT/HCPCS: 36415; 74177; 80053; 81003; 81025; 82150; 82550; 82948; 83615; 83690; 84484; 84703; 85025; 85378; 85610; 85730; 93005; 96374; 99285; C9113; G0378; J7040; Q9967

== ENCOUNTER 2018-12-13 06:33 | Day surgery (SDC) | payer BC | END 2018-12-13 10:35 | disposition home or self-care (01) | LOC: ENDO 06:33 ==